=== PATIENT | male | born 1945 | race Caucasian/White ===

== ENCOUNTER → 2018-01-29 12:31 | Outpatient (CLI) | payer OTHER, SELFPAY ==
[2018-01-29 14:34] LABS: Prostate Specific Antigen 0.319 ng/mL (0.10-4.00)
== END ==
PROVIDERS: Visit Provider Radiology Radiation Oncology
DX: C61 Malignant neoplasm of prostate (principal)
CPT/HCPCS: 36415; 84153

== ENCOUNTER → 2018-06-27 11:17 | Outpatient (CLI) | payer OTHER, SELFPAY ==
--- NOTE | 2018-06-27 | DI.RAD.S_ITS ---
PROCEDURE: XR LUMBAR SPINE 2-3V INDICATIONS: BACK PAIN TECHNIQUE: 3 views of the lumbar spine were acquired. COMPARISON: None. FINDINGS: Bones: No fracture or focal osseous destruction. Anatomic alignment. Diffuse facet arthropathy. Endplate spurring and sclerosis. Minimal narrowing of the L5-S1 disc space. Mild dextrocurvature. Soft tissues: Overlying bowel gas pattern is normal. No suspicious soft tissue calcifications. IMPRESSION: No fracture. Diffuse facet arthropathy. Mild dextrocurvature. Minimal L5-S1 disc degeneration. Dictated by: Giuliano Kaufman M.D. on 06/27/2018 at 13:13 Approved by: Giuliano Kaufman M.D. on 06/27/2018 at 13:18
== END ==
PROVIDERS: Visit Provider Internal Medicine
DX: M47.816 Spondylosis without myelopathy or radiculopathy, lumbar region (principal); M54.9 Dorsalgia, unspecified
CPT/HCPCS: 72100

== ENCOUNTER → 2021-05-01 09:44 | Outpatient (CLI) | payer MEDICARE, SELFPAY ==
--- NOTE | 2021-05-01 | DI.CT.S_ITS ---
PROCEDURE: CT SINUS SCREEN WO CON INDICATIONS: Chronic pansinusitis TECHNIQUE: Noncontrast 3.0 mm axial images acquired from the frontal sinuses to the mid-sella, with coronal and sagittal reformats. For radiation dose reduction, the following was used: automated exposure control, adjustment of mA and/or kV according to patient size. COMPARISON: None. FINDINGS: Maxillary Sinuses: The maxillary sinuses are clear without significant mucosal thickening or air-fluid levels. The ostiomeatal units are patent bilaterally. No significant Varsha ethmoid air cells present along the inferior medial orbital lópez. Sphenoid Sinuses: The sphenoethmoidal recesses are patent and unobstructed. The sphenoid sinuses are clear. Sphenoid pneumatization pattern is sellar, extending posteriorly beyond the tuberculum sella. No [place] or sphenoethmoidal air cells present. The optic nerve is well covered. Frontal Sinuses: The frontal recesses are both patent. The frontal sinuses are clear. Ethmoid Sinuses: The ethmoid air cells are clear without significant mucosal thickening or air-fluid levels. The fovea ethmoidalis and cribriform plate are unremarkable. The lamina papyracea are both structurally intact. Lateral lamella are symmetric. Nasal Cavity and Septum: Incidental minimal pneumatization Cartilaginous and osseous components of the nasal septum intact and midline without perforation. Skull Base: The anterior cranial fossa and pituitary sella are unremarkable. No evidence of bony dehiscence. Both osseous orbits and contents are within normal limits. IMPRESSION: 1. Incidental minimal pneumatization of the nasal turbinates. Otherwise unremarkable CT of the paranasal sinuses. Approved by: Honorio Morrell M.D. on 05/01/2021 at 13:24
== END ==
PROVIDERS: Referring Provider Otolaryngology; Visit Provider Otolaryngology
DX: J32.4 Chronic pansinusitis (principal)
CPT/HCPCS: 70486